=== PATIENT | female | born 1970 | race African-American/Black ===

== ENCOUNTER 2019-09-07 12:28 | Emergency (ER) | payer OTHER ==
[~2019-09-07] VITALS: Ht 160 cm; Wt 70.0 kg
[2019-09-07 12:29] VITALS: BP 140/84
[2019-09-07] MEDS ORDERED: KETOROLAC 30MG/ML VIAL IM ONE (13:00)
== END 2019-09-07 14:12 | disposition home or self-care (01) ==
LOC: ER 12:28
DX: S10.83XA Contusion of other specified part of neck, initial encounter (principal); S40.011A Contusion of right shoulder, initial encounter; F41.9 Anxiety disorder, unspecified; F32.9 Major depressive disorder, single episode, unspecified; Z88.3 Allergy status to other anti-infective agents; V43.52XA Car driver injured in collision with other type car in traffic accident, initial encounter; Y93.89 Activity, other specified; Y92.488 Other paved roadways as the place of occurrence of the external cause
CPT/HCPCS: 73030; 96372; 99283; J1885